=== PATIENT | male | born 1970 | race Caucasian/White ===

== ENCOUNTER 2019-02-26 12:47 | Emergency (ER) | payer BC ==
[~2019-02-26] VITALS: Ht 193 cm; Wt 93.0 kg
[2019-02-26 12:59] VITALS: BP 104/85; Ht 193 cm; Wt 93.0 kg
== END 2019-02-26 17:16 | disposition home or self-care (01) ==
LOC: ED 12:47
DX: R07.89 Other chest pain (principal)
CPT/HCPCS: J1885